=== PATIENT | female | born 1995 | race Caucasian/White ===

== ENCOUNTER 2025-01-01 13:13 | Emergency (ER) | payer OTHER, SELFPAY ==
[2025-01-01 13:19] VITALS: BP 145/90; PULSE 68; RESP 20; TEMP 36.8; O2SAT 100; BMI 24.0
--- NOTE | 2025-01-01 13:23 | ED.GENADULT ---
HPI - General Adult General Chief complaint: General Medical Stated complaint: Inhalation of fumes? Headache, disoriented Time Seen by Provider: 01/01/25 13:23 Source: patient, RN notes reviewed and old records reviewed Mode of arrival: ambulatory Limitations: no limitations History of Present Illness ED Provider: Carlene HPI narrative: 29-year-old female presents for evaluation of a headache. Patient reports that she was home this afternoon. She reports that an machine pecan picker came by to spray for ants and wasps Patient reports that the machine pecan picker told her that the chemicals were safe and she could remain in the house. The patient states that shortly after the chemicals were sprayed in her basement and outside she started to get a headache and felt ?disoriented. ? She denies any cough, shortness of breath or swelling Related Data Allergies Allergy/AdvReac Type Severity Reaction Status Date / Time Penicillins Allergy Diarrhea Verified 01/01/25 13:21 Opioids - Morphine Analogues AdvReac Unknown Verified 01/01/25 13:22 Review of Systems Constitutional: Constitutional: Reports as per HPI, Denies chills, Denies fatigue, Denies fever(s) and Reports headache(s) Eyes: Eyes: Denies blurry vision ENT: Reports headache(s) Cardiovascular: Cardiovascular: Denies chest pain and Denies dyspnea Respiratory: Respiratory: Denies cough and Denies dyspnea Gastrointestinal: Gastrointestinal: Denies abdominal pain, Denies constipation and Denies vomiting Genitourinary: Genitourinary: Denies dysuria Musculoskeletal: Musculoskeletal: Denies back pain Integumentary/Breasts: Skin/Breast: Denies rash Neurologic: Reports headache(s) and Denies focal weakness Psychiatric: Psychiatric: Denies anxiety Endocrine: Endocrine: Denies fatigue Physical Exam ED Vital Signs: Vital Signs - 24 hr 01/01/25 13:19 Temperature 98.3 F Pulse Rate 68 Respiratory Rate 20 Blood Pressure 145/90 H Pulse Oximetry 100 Oxygen Delivery Method Room Air BMI result Body Mass Index 24.0 Const General: healthy appearing, comfortable, no acute distress, alert and awake Nutritional Appearance: well nourished Orientation/consciousness: patient oriented x3 HENMT Head: Yes normocephalic and Yes atraumatic Eyes Eyelids: Yes eyelids normal Conjunctivae: conjunctivae normal Sclerae: sclerae normal Corneas: corneas normal Pupils: Equal, round and reactive pupils present EOM: EOMs intact bilaterally Neck Neck: Yes full ROM Resp Effort & Inspection: normal respiratory effort, able to speak in complete sentences, no audible wheezes and not labored Auscultation: clear to auscultation bilaterally Cardio Rate: regular rate Rhythm: regular rhythm Skin General skin exam: no rashes or lesions noted and elasticity normal Neuro General: patient oriented x3 Cranial nerves: Yes CN's II-XII intact bilaterally, Yes Equal, round and reactive pupils present and Yes Bilaterally intact EOM present Cognition (Neuro): normal cognition Extrem Other: Moving all extremities well without any obvious deformities Medical Decision Making Medical Decision Making MDM Narrative: 29-year-old female who denies past medical history presents for evaluation of a headache. She reports being in the vicinity of past the size that she was told his safe. The patient has no neuro deficits, no signs of rashes, no shortness of breath or difficulty breathing, lungs clear to auscultation. She was quite well appearing. Patient will be discharged, she was advised to stay out of the house for a few hours while the fumes dissipate. I do not see any indication for emergent workup at this time Differential Diagnosis Differential Diagnoses: The differential diagnosis associated with the presentation includes Acute headache Allergic reaction Inhalation injury Anxiety Discharge Plan Discharge Clinical Impression: Acute headache Patient Disposition: Home, Self-Care Instructions: Acute Headache (ED) Additional Instructions: Your physical exam is quite reassuring. You may use Ibuprofen as needed for headaches Return for new or worsening symptoms. Print Language: Portuguese
== END 2025-01-01 13:45 | disposition home or self-care (01) ==
LOC: HO.ED 13:43
PROVIDERS: Emergency Provider Emergency Medicine
DX: R51.9 Headache, unspecified (principal)
CPT/HCPCS: 99281; 99282